=== PATIENT | male | born 1960 | race American Indian/Alaskan Native ===

== ENCOUNTER 2020-10-15 22:40 | Emergency (ER) | payer MEDICAID ==
[2020-10-15 23:09] VITALS: BP 144/92
--- NOTE | 2020-10-15 23:39 | Emergency Department Report ---
ED General Adult HPI - General Chief complaint: Dental/Oral Stated complaint: TOOTHACHE;CHEEK SWELLING Time Seen by Provider: 10/15/20 23:26 Source: patient Mode of arrival: Ambulatory Limitations: No Limitations - History of Present Illness Initial comments: 60-year-old -Stateless male patient presents with complaints of right lower dental pain and right facial swelling x3 days. He denies any fever/chills/sweats, difficulty opening his jaw, dysphagia, or past medical history. Patient rates his pain as a 10/10 in severity and states naproxen is no longer helping. - Related Data Previous Rx's Medication Instructions Recorded Last Taken Type Cefuroxime Axetil [Ceftin] 500 mg PO Q12H #14 ml 12/24/17 Unknown Rx DOXYCYCLINE Hyclate [Vibramycin 100 mg PO Q12HR #14 capsule 12/24/17 Unknown Rx CAP] oxyCODONE /ACETAMINOPHEN [Percocet 1 tab PO Q4H PRN #24 tablet 12/24/17 Unknown Rx 5/325 mg] Acetaminophen/Codeine [Tylenol 1 tab PO Q8H PRN #8 tab 10/15/20 Unknown Rx /Codeine # 3 tab] Clindamycin [Clindamycin CAP] 300 mg PO Q6H 10 Days #20 capsule 10/15/20 Unknown Rx Naproxen 500 mg PO BID PRN #14 tablet 10/15/20 Unknown Rx Allergies Allergy/AdvReac Type Severity Reaction Status Date / Time No Known Allergies Allergy Verified 12/18/17 13:56 ED Review of Systems ROS: Stated complaint: TOOTHACHE;CHEEK SWELLING Other details as noted in HPI Constitutional: denies: chills, diaphoresis, fever, malaise, weakness ENT: dental pain Respiratory: denies: cough, SOB with exertion Cardiovascular: denies: chest pain Skin: denies: change in color Hematological/Lymphatic: denies: swollen glands ED Past Medical Hx - Past Medical History Hx HIV: No Additional medical history: Anemia - Surgical History Past Surgical History?: No - Social History Smoking Status: Current Every Day Smoker Substance Use Type: None - Medications Home Medications: Home Medications Medication Instructions Recorded Confirmed Last Taken Type Cefuroxime Axetil [Ceftin] 500 mg PO Q12H #14 ml 12/24/17 Unknown Rx DOXYCYCLINE Hyclate [Vibramycin 100 mg PO Q12HR #14 capsule 12/24/17 Unknown Rx CAP] oxyCODONE /ACETAMINOPHEN [Percocet 1 tab PO Q4H PRN #24 tablet 12/24/17 Unknown Rx 5/325 mg] Acetaminophen/Codeine [Tylenol 1 tab PO Q8H PRN #8 tab 10/15/20 Unknown Rx /Codeine # 3 tab] Clindamycin [Clindamycin CAP] 300 mg PO Q6H 10 Days #20 capsule 10/15/20 Unknown Rx Naproxen 500 mg PO BID PRN #14 tablet 10/15/20 Unknown Rx ED Physical Exam - General Limitations: No Limitations General appearance: alert, in no apparent distress - Head Head exam: Present: atraumatic, normocephalic - Eye Eye exam: Present: normal appearance - Expanded ENT Exam Expanded Mouth exam: Absent: drooling, trismus, muffled voice Teeth exam: Present: dental tenderness #, other (Right lower dental abscess noted with moderate overlying right facial swelling) - Respiratory Respiratory exam: Absent: respiratory distress - Cardiovascular Cardiovascular Exam: Present: regular rate - Neurological Exam Neurological exam: Present: alert, oriented X3, normal gait - Psychiatric Psychiatric exam: Present: normal affect, normal mood - Skin Skin exam: Present: warm, dry, intact, normal color. Absent: rash, cyanosis, diaphoretic, erythema ED Course Vital Signs 10/15/20 23:04 Temperature 98.6 F Pulse Rate 97 H Respiratory 16 Rate Blood Pressure 144/92 O2 Sat by Pulse 100 Oximetry - Procedure Description Procedures done: Right inferior alveolar nerve block performed using 0.5 cc of 0.5% Marcaine without epi. Patient tolerated procedure well. ED Medical Decision Making - Medical Decision Making 60-year-old -Stateless male patient presents with complaints of right lower dental pain and right facial swelling x3 days. He denies any fever/chills/sweats, difficulty opening his jaw, dysphagia, or past medical history. Patient rates his pain as a 10/10 in severity and states naproxen is no longer helping. Dental abscess noted on exam with active drainage. Dental block performed for pain relief. Prescription for clindamycin given. Patient also provided with dental clinic list and informed to follow-up within 2 days. Discussed signs and symptoms that should prompt immediate return to the emergency department in detail with patient who verbalizes understanding. His vitals are normal he is well-appearing and stable for discharge home. Critical care attestation.: If time is entered above; I have spent that time in minutes in the direct care of this critically ill patient, excluding procedure time. ED Disposition Clinical Impression: Dental abscess Disposition: DC- TO HOME OR SELFCARE Is pt being admited?: No Condition: Stable Instructions: Dental Abscess Additional Instructions: Follow-up with a dental specialist or use the list provided to find a dental specialist within 2 days. Prescriptions: Clindamycin [Clindamycin CAP] 300 mg PO Q6H 10 Days #20 capsule Naproxen 500 mg PO BID PRN #14 tablet PRN Reason: pain Acetaminophen/Codeine [Tylenol /Codeine # 3 tab] 1 tab PO Q8H PRN #8 tab PRN Reason: Pain , Severe (7-10) Referrals: AMANDA YIP MD [Primary Care Provider] - 3-5 Days Forms: Work/School Release Form(ED)
[2020-10-15] MEDS ORDERED: BUPIVACAINE/PF (0.25%) 2.5 MG/ML 30 ML VIAL INFILTRATI ONE (23:44)
[2020-10-15] MEDS ORDERED: ONDANSETRON 4 MG ODT TAB PO ONE (23:45)
[2020-10-15] MEDS ORDERED: oxyCODONE /ACETAMINOPHEN 5-325MG TAB PO ONE (23:45)
[2020-10-15] MEDS ORDERED: BUPIVACAINE/PF (0.5%) 5 MG/1 ML 10 ML VIAL INFILTRATI NR (23:45)
[2020-10-15] MEDS ORDERED: BUPIVACAINE/PF (0.5%) 5 MG/1 ML 10 ML VIAL INFILTRATI ONE (23:52)
== END 2020-10-16 00:54 | disposition home or self-care (01) ==
LOC: ED 22:40
DX: K04.7 Periapical abscess without sinus (principal); F17.200 Nicotine dependence, unspecified, uncomplicated; Z79.899 Other long term (current) drug therapy
CPT/HCPCS: 99282; Q0162